=== PATIENT | male | born 1985 | race Caucasian/White ===

== ENCOUNTER → 2023-11-20 | Outpatient (CLI) | payer MEDICAID, SELFPAY ==
[2023-11-20 12:40] LABS: Hemoglobin 14.7 g/dL (13.0-16.5); Mean Corp Hgb Conc 34.2 g/dL (32-36); Mean Corpuscular Hgb 30.1 pg (27.0-32.0); Mean Corpuscular Volume 87.9 fL (80-94); Mean Platelet Vol. 11.1 fl (6.2-12.0); Platelet Count 240 K/mm3 (150-450); RBC Distribution Width CV 12.2 % (11.6-14.6); RBC Distribution Width SD 39.3 fl (35.1-43.9); Red Blood Count 4.89 M/mm3 (4.6-6.2); White Blood Count 5.2 K/mm3 (4.4-11.0)
[2023-11-20 13:34] LABS: ALB/GLOB Ratio 1.2 RATIO (0.9-2.4); AST(SGOT) 13 U/L (15-37); Alanine Aminotransfer ALT/SGPT 28 U/L (16-61); Albumin, Serum 4.1 g/dL (3.2-5.0); Alkaline Phosphatase 83 U/L (45-117); Anion Gap 7 (5-15); BUN 25 mg/dL (7-18); BUN/Creat Ratio 27.8 RATIO (10-20); Calcium,Total 9.3 mg/dL (8.5-10.1); Chloride 108 mmol/L (98-107); EST Glomerular Filtration Rate 100 mL/min (>60); Est Glom Filt Rate - Afr Amer 121 mL/min (>60); Globulin 3.5 g/dL (2.2-4.2); Glucose 95 mg/dL (74-106); Potassium 3.9 mmol/L (3.5-5.1); Protein, Total 7.6 g/dL (6.4-8.2); Sodium Level 139 mmol/L (136-145)
== END | disposition home or self-care (01) ==
LOC: MTLAB 10:05
PROVIDERS: PCP Nurse Practitioner Family; Referring Provider Psychiatry & Neurology Neurology; Visit Provider Psychiatry & Neurology Neurology
DX: G43.909 Migraine, unspecified, not intractable, without status migrainosus (principal)
CPT/HCPCS: 36415; 80053; 85027

== ENCOUNTER → 2023-12-08 | Outpatient (CLI) | payer MEDICAID, SELFPAY ==
--- OUTSIDE RECORDS SUMMARY | 2023-12-08 06:33 | XMS RPT_ITS | CCD ---
Author Name Unknown Address [address] [place] [address] Organization [facility] Care Team Providers Care [employer] Operations Manager Name Role Phone Rusty Marcus Unavailable Unavailable Vic Grissom Unavailable Unavailable POLO RAMIREZ Attending Unavailable POLO RAMIREZ Primary Care Unavailable POLO RAMIREZ Admitting Unavailable VIC GRISSOM Referring Unavailable VIC GRISSOM Consulting Unavailable PROVIDER, UNKNOWN Consulting Unavailable VIC GRISSOM Attending Unavailable VIC GRISSOM Consulting Unavailable VIC GRISSOM Primary Care Unavailable VIC GRISSOM Admitting Unavailable PROVIDER, UNKNOWN Consulting Unavailable Allergies Allergy Classification Reported Allergen(s) Allergy Type Date of Onset Reaction(s) Facility (1 source) Antihistamine TABS Allergy to drug (finding) [facility] 120 Work Phone: Medications Completed/Discontinued Medications Medication Drug Class(es) Dates Sig (Normalized) Sig (Original) 60 actuat albuterol 0.09 mg/actuat metered dose inhaler (1 source) beta2-Adrenergic Agonist Albuterol 90 MCG/ACT AERS Refills: 0 Active amitriptyline hydrochloride 10 mg oral tablet (1 source) Tricyclic Antidepressant Start: 12-22-2019 take 1 tablet by mouth at bedtime Amitriptyline HCl - 10 MG Oral Tablet TAKE 1 TABLET AT BEDTIME. Quantity: 30 Refills: 11 Rusty Marcus DO Start : 22-Dec-2019 Active cetirizine hydrochloride 10 mg oral tablet (1 source) Histamine-1 Receptor Antagonist Zyrtec 10 MG TABS Refills: 0 Active hydrocortisone acetate 25 mg rectal suppository (1 source) Corticosteroid Start: 09-08-2019 Hemmorex-HC 25 MG Rectal Suppository INSERT 1 SUPPOSITORY RECTALLY AT BEDTIME NEEDED. Quantity: 14 Refills: 0 Rusty Marcus DO Start : 08-Sep-2019 Active hydrocortisone acetate 10 mg/ml / pramoxine hydrochloride 10 mg/ml rectal foam (1 source) Corticosteroid Start: 02-23-2020 Proctofoam HC 1-1 % External Foam TAKE RECTALLY ONCE DAILY AT BEDTIME. Quantity: 1 Refills: 0 Rusty Marcus DO Start : 23-Feb-2020 Active 10 GM Can Problems Active Problems Problem Classification Problem Date Documented Da te Episodic/Chronic Abdominal pain (1 source) Abdominal pain; Translations: [Abdominal pain] Episodic Anal and rectal conditions (1 source) Anal fissure; Translations: [Anal fissure] Episodic E Codes: Cut/pierceb (1 source) Contact with sharp glass, initial encounter; Translations: [Contact with sharp glass, initial encounter] Onset: 3 Episodic Essential hypertension (2 sources) Essential hypertension; Translations: [Essential (primary) hypertension] Onset: 3 Chronic Gastrointestinal hemorrhage (1 source) Gastrointestinal hemorrhage; Translations: [Bright red rectal bleeding] Episodic Headache; including migraine (1 source) Migraine; Translations: [Migraine without status migrainosus, not intractable, unspecified migraine type] Chronic Nausea and vomiting (1 source) Nausea and vomiting; Translations: [Nausea and vomiting] Episodic Nutritional deficiencies (1 source) Vitamin D deficiency, unspecified; Translations: [Vitamin D deficiency, unspecified] Onset: 3 Chronic Open wounds of extremities (3 sources) Laceration without foreign body of right little finger without damage to nail, initial encounter; Translations: [Laceration without foreign body of right little finger without damage to nail, initial encounter] Onset: 3 Episodic Other and ill-defined heart disease (1 source) Heart disease; Translations: [Heart disease] Chronic Other gastrointestinal disorders (1 source) Irritable bowel syndrome; Translations: [IBS (irritable bowel syndrome)] Chronic Other liver diseases (1 source) Abnormal levels of other serum enzymes; Translations: [Abnormal levels of other serum enzymes] Onset: 3 Episodic Other nutritional; endocrine; and metabolic disorders (1 source) Overweight; Translations: [Overweight] Onset: 3 Episodic Past or Other Problems Problem Classification Problem Date Documented Da te Episodic/Chronic NEGATED: Highlighted row has not occurred!Residual codes; unclassified (4 sources) Disease Episodic Results Test Name Value Interpretation Reference Range Facil ity Encounters Encounter Date Encounter Type Care Provider Facility Start: 02-14-2023 End: 02-14-2023 ambulatory [facility] Start: 02-14-2023 Encounter for sudha l adult medical examination without abnormal findings [facility] Start: 01-14-2023 End: 01-14-2023 Emergency department patient visit POLO RAMIREZ [facility] Start: 02-23-2020 Patient encounter procedure Rusty Hernandez [facility] 120 Work Phone: Start: 12-22-2019 Patient encounter procedure [facility] Work Phone: Start: 10-14-2019 Patient encounter procedure [facility] Work Phone: Start: 09-08-2019 Patient encounter procedure [facility] Work Phone: Start: 05-23-2018 Patient encounter Facil [id number] Procedures Date Procedure Procedure Detail Performing Clinician Colonoscopy Rusty Marcus End: 04-06-2019 Esophagogastroduodenoscopy Rusty Marcus Reconstruction of nose Rusty Marcus Payers Date Payer Category Payer Unknown [id number] 1985 Unknown [id number] Unknown [id number] Social History Date Type Detail Facility NEGATED: Highlighted row - - - [facility] Work Phone: Functional Status Date Assessment Result Facility NEGATED: Highlighted row Functional performance Functional status health issues are not documented Disease -[facility] Work Phone: Mental Status Date Assessment Result Facility NEGATED: Highlighted row Cognitive function [Interpretation] Cognitive status health issues are not documented Disease MP-[facility] Work Phone: Summary Purpose Family History No Family History Records Found Mother Name Dates Details Family history of cerebrovas cular accident (CVA)(V17.1, Z82.3) Status:Active Father Name Dates Details Family history of malignant neoplasm of colon(V16.0, Z80.0) Status:Active Advance Directives No Advanced Directives Records FoundNo Advanced Directives Records FoundNo Advanced Directives Records FoundNo Advanced Directives Records FoundNo Advanced Directives Records FoundNo Advanced Directives Records Found Additional Source Comments (unrecognized sect ion and content) No Status Records FoundNo Status Records FoundNo Status Records FoundNo Status Records FoundNo Status Records FoundNo Status Records Found INFORMATION SOURCE (unrecogn ized section and content) DATE CREATED AUTHOR AUTHOR'S ORGANIZ ATION 07/31/2019 [facility] DATE CREATED AUTHOR AUTHOR'S ORGANIZ ATION 09/15/2019 [facility] DATE CREATED AUTHOR AUTHOR'S ORGANIZ ATION 02/23/2020 [employer] DATE CREATED AUTHOR AUTHOR'S ORGANIZ ATION 01/10/2021 [facility] DATE CREATED AUTHOR AUTHOR'S ORGANIZ ATION 02/14/2023 [facility] FOR RECORDS PERTAINING TO PATIENTS WHO ARE OR HAVE BEEN ENROLLED IN A CHEMICAL DEPENDENCY/SUBSTANCEABUSE PROGRAM, SOME INFORMATION MAY BE OMITTED. This clinical summary was aggregated from multiple sources. Caution should be exercised in using it in the provision of clinical care. This summary normalizes information from multiple sources, and as a consequence, information in this document may materially change the coding, format and clinical context of patient data. In addition, data may be omitted in some cases. CLINICAL DECISIONS SHOULD BE BASED ON THE PRIMARY CLINICAL RECORDS. [facility] [employer] [facility]. provides no warranty or guarantee of the accuracy or completeness of information in this document.
--- NOTE | 2023-12-08 06:57 | MRI_ITS ---
STUDY: MRI BRAIN WITH AND WITHOUT CONTRAST REASON FOR EXAM: Male, 38 years old. migraine headaches TECHNIQUE: Standardized multiplanar fat and water weighted pulse sequences were obtained. IV 15ml clariscan was administered for the contrast portion of the examination. COMPARISON: None. FINDINGS: Normal size of the ventricles and extra-axial spaces for the patient''s age. Normal white matter tracts of the supratentorial brain. There are no white matter hyperintensities. Specifically, there are no focal areas of white matter gliosis which are occasionally associated with vasospastic migraine headaches. There are no demyelinating plagues of the supratentorial brain, brainstem or cerebellum. There are no findings suspicious for multiple sclerosis (MS). There is no evidence for recent intracranial ischemia or other cause of cytotoxic edema on diffusion weighted imaging (DWI). No hydrocephalus or midline shift is present. There are no abnormal enhancing lesions of the brain parenchyma. There is no demonstrated abnormal thickening or enhancement of the meninges or dura. No skull lesions are seen. Normal bilateral basal ganglia. Normal thalami. There is no extra-axial fluid accumulation. Normal flow voids within the major intracranial circulation suggesting patency by spin echo criteria. Normal venous enhancement. There is no enhancing intra-axial or extra-axial abnormality. Normal sella turcica, pituitary gland, infundibular stalk, optic chiasm and hypothalamus. Normal tectal plate and pineal gland. Normal midbrain, alesia and medulla. Normal cerebellum. Normal basal cisterns. Normal bilateral temporal bones. Normal bilateral internal auditory canals. No demonstrated orbital abnormality, within the constraints of a routine brain study. Normal visualized paranasal sinuses. Normal calvarium and skull base. Normal visualized soft tissue structures. Normal visualized upper cervical spine. MRI/Brain W/WO Contrast IMPRESSION: Normal unenhanced and enhanced MRI of the brain. Electronically Signed: Josh Pena MD at 13:56 EST ,
== END | disposition home or self-care (01) ==
LOC: MRI 06:30
PROVIDERS: PCP Nurse Practitioner Family; Referring Provider Psychiatry & Neurology Neurology; Visit Provider Psychiatry & Neurology Neurology
DX: G43.009 Migraine without aura, not intractable, without status migrainosus (principal)
CPT/HCPCS: 70553; A9575